=== PATIENT | female | born 1985 | race Caucasian/White ===

== ENCOUNTER 2019-10-23 20:31 | Emergency (ER) | payer BC ==
[2019-10-23] MEDS ORDERED: Bupivacaine 0.5% 10 ML SDV INJECT ONE (21:33)
[2019-10-23] MEDS ORDERED: Ibuprofen 400 MG Tab PO ONE (21:33)
[2019-10-23] MEDS ORDERED: Lidocaine 5% 700 MG Patch TOP ONE (21:33)
[2019-10-23] MEDS ORDERED: Acetaminophen 500 MG Tab PO ONE (21:33)
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
== END 2019-10-23 22:46 | disposition home or self-care (01) ==
LOC: MW.ED 20:31
DX: G89.29 Other chronic pain (principal); M54.2 Cervicalgia; I10 Essential (primary) hypertension; F17.210 Nicotine dependence, cigarettes, uncomplicated; Z79.899 Other long term (current) drug therapy
CPT/HCPCS: 20552; 99283; A9270; J3490

== ENCOUNTER 2019-11-06 12:00 | Emergency (ER) | payer BC ==
[2019-11-06] MEDS ORDERED: Dexamethasone 4 MG Tab PO ONE (12:46)
--- NOTE | 2019-11-06 12:54 | EDM.PDOC ---
ED HPI GENERAL MEDICAL PROBLEM - General Chief Complaint: Neck Problem Stated Complaint: NECK PAIN Time Seen by Provider: 11/06/19 12:14 - History of Present Illness INITIAL COMMENTS - FREE TEXT/NARRATIVE: History of present illness: Patient presents with neck pain that is radiating down to her left arm and shoulder she states she has had this pain for some time saw her primary care doctor and had an MRI done showing some neural foraminal stenosis on the left no critical stenosis or spinal stenosis was present on the MRI report which she has with her. She is scheduled to see a neurosurgeon next week but does not have any medication for pain she has been taking Motrin and Tylenol at home and this is not helping. No new injuries no difficulty urinating she has a little bit of left upper extremity weakness that is subjective fevers are reported Review of systems: As per history of present illness and below otherwise all systems reviewed and negative. Past medical history: As per history of present illness and as reviewed below otherwise noncontributory. Surgical history: As per history of present illness and as reviewed below otherwise noncontributory. Social history: No reported history of drug or alcohol abuse. Family history: As per history of present illness and as reviewed below otherwise noncontributory. Physical exam: HEENT: Atraumatic, normocephalic, pupils reactive, negative for conjunctival pallor or scleral icterus, mucous membranes moist, throat clear, neck supple, nontender, trachea midline. Lungs: Clear to auscultation, breath sounds equal bilaterally, chest nontender. Heart: S1S2, regular, negative for clicks, rubs, or JVD. Abdomen: Soft, nondistended, nontender. Negative for masses or hepatosplenomegaly. Negative for costovertebral tenderness. Pelvis: Stable nontender. Genitourinary: Deferred. Rectal: Deferred. Extremities: Atraumatic, negative for cords or calf pain. Neurovascular unremarkable. Neuro: Awake, alert, oriented. Cranial nerves II through XII unremarkable. Cerebellum unremarkable. Motor and sensory unremarkable throughout. Exam nonfocal. Diagnostics: [] Therapeutics: [] Impression: Cervical radiculopathy [] Plan: I will start the patient on some prednisone Flexeril and gabapentin she is to follow-up with her primary care doctor also recommended she purchase a [place] traction device and or seek out physical therapy from her primary care doctor. [] Definitive disposition and diagnosis as appropriate pending reevaluation and review of above. Neck Pain Score (Numeric/FACES): 10 - Related Data Allergies Allergy/AdvReac Type Severity Reaction Status Date / Time No Known Allergies Allergy Verified 11/06/19 12:28 Home Meds: Home Meds Acetaminophen [Acetaminophen Extra Strength] 500 - 1,000 mg PO Q6H PRN #30 tablet 10/23/19 [Rx] Anti Htn 10/23/19 [History] Anti-Arrhytmic 10/23/19 [History] Gabapentin [Neurontin] 300 mg PO TID 10/23/19 [History] Ibuprofen 400 mg PO Q6H PRN #30 tablet 10/23/19 [Rx] Levothyroxine [Synthroid] 50 mcg PO DAILY 10/23/19 [History] Cyclobenzaprine [Flexeril] 10 mg PO TID #30 tab 11/06/19 [Rx] predniSONE 60 mg PO WITHBREAKFAST 5 Days #15 tab 11/06/19 [Rx] Past Medical History HEENT History: Reports: Impaired Vision Other HEENT History: wears glasses Cardiovascular History: Reports: Arrhythmia, Hypertension Gastrointestinal History: Reports: None Genitourinary History: Reports: 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: Psychiatric History: Reports: Anxiety Hematologic History: Reports: None Immunologic History: Reports: None Oncologic (Cancer) History: Reports: None - Infectious Disease History Infectious Disease History: Reports: None - Past Surgical History Head Surgeries/Procedures: Reports: None HEENT Surgical History: Reports: None Cardiovascular Surgical History: Reports: None GI Surgical History: Reports: Cholecystectomy Female Surgical History: Reports: Section Social & Family History - Family History Family Medical History: Noncontributory - Tobacco Use Smoking Status *Q: Current Every Day Smoker Years of Tobacco use: 20 Packs/Tins Daily: 0.5 - Caffeine Use Caffeine Use: Reports: None - Recreational Drug Use Recreational Drug Use: No ED ROS GENERAL - Review of Systems Review Of Systems: See Below ED EXAM, GENERAL - Physical Exam Exam: See Below Course - Vital Signs Last Recorded V/S: Last Vital Signs Temp 36.4 C 11/06/19 12:23 Pulse 88 11/06/19 12:23 Resp 18 11/06/19 12:23 BP 154/94 H 11/06/19 12:23 Pulse Ox 98 11/06/19 12:23 - Orders/Labs/Meds Meds: Medications Discontinued Medications Generic Name Dose Route Start Last Admin Trade Name Gris PRN Reason Stop Dose Admin Dexamethasone 8 mg 11/06/19 12:46 Dexamethasone PO 11/06/19 12:47 ONETIME ONE Departure - Departure Time of Disposition: 12:48 Disposition: Home, Self-Care 01 Preliminary Cause of *Q: Sepsis & Multi System Organ Failure Condition: Good Clinical Impression: Cervical radiculopathy - Discharge Information *PRESCRIPTION DRUG MONITORING PROGRAM REVIEWED*: Not Applicable *COPY OF PRESCRIPTION DRUG MONITORING REPORT IN PATIENT CHARLES: Not Applicable Instructions: Radicular Pain Referrals: PCP,None [Primary Care Provider] - Additional Instructions: The following information is given to patients seen in the emergency department who are being discharged to home. This information is to outline your options for follow-up care. We provide all patients seen in our emergency department with a follow-up referral. The need for follow-up, as well as the timing and circumstances, are variable depending upon the specifics of your emergency department visit. If you don't have a primary care physician on staff, we will provide you with a referral. We always advise you to contact your personal physician following an emergency department visit to inform them of the circumstance of the visit and for follow-up with them and/or the need for any referrals to a consulting specialist. The emergency department will also refer you to a specialist when appropriate. This referral assures that you have the opportunity for follow-up care with a specialist. All of these measure are taken in an effort to provide you with optimal care, which includes your follow-up. Under all circumstances we always encourage you to contact your private physician who remains a resource for coordinating your care. When calling for follow-up care, please make the office aware that this follow-up is from your recent emergency room visit. If for any reason you are refused follow-up, please contact the [facility] Emergency Department at and asked to speak to the emergency department charge nurse. Sepsis Event Note (ED) - Evaluation Sepsis Screening Result: No Definite Risk - Focused Exam Vital Signs: Vital Signs Temp Pulse Resp BP Pulse Ox 11/06/19 12:23 36.4 C 88 18 154/94 H 98
== END 2019-11-06 13:10 | disposition home or self-care (01) ==
LOC: MW.ED 12:00
DX: M54.12 Radiculopathy, cervical region (principal); I10 Essential (primary) hypertension; F17.210 Nicotine dependence, cigarettes, uncomplicated; Z79.899 Other long term (current) drug therapy
CPT/HCPCS: 99283; J8540; 99282